=== PATIENT | male | born 1975 | race Caucasian/White ===

== ENCOUNTER 2017-09-27 23:47 | Emergency (ER) | payer BC ==
[2017-09-27 23:59] VITALS: BP 134/85; BMI 34.9
[2017-09-28] MEDS ORDERED: NS 1000 ML 1,000 ML IV ONE (00:44)
[2017-09-28] MEDS ORDERED: TORADOL 30 MG VIAL IVP ONE (00:44)
--- NOTE | 2017-09-28 00:47 | DR.GENAD ---
HPI - PCP Primary Care Physician: chivo - Complaint/Symptoms Chief Complaint Doctors Comments: Patient presents with generalized boy aches for one day. Chief Complaint:: flu symptoms - Source History Provided: Patient - Mode of Arrival Mode of Arrival: Ambulatory - Timing Onset of Chief Complaint: 09/27/17 PMH - PMH Past Medical History: Yes Past Medical History: Hypertension Past Surgical History: No - Family History History of Family Medical Conditions: Yes Family Medical History: Hypertension - Social History Does patient currently use any type of tobacco product: Yes Have you used tobacco products in the last 12 months: Yes Type of Tobacco Use: Cigarettes Does any household member use tobacco: No Alcohol Use: None Do you use any recreational Drugs:: No Lives With: Family Lives Where: Home - infectious screening In the last 2 months have you had wt loss of >10#?: NO Have you had fever, night sweats or hemotysis?: No Have you traveled outside the country in the last 6 months?: No Isolation: Standard ROS - Review of Systems Eyes: No Symptoms Reported ENTM: No Symptoms Reported Respiratoy: No Symptoms Reported Cardiovascular: No Symptoms Reported Gastrointestinal/Abdominal: No Symptoms Reported Genitourinary: No Symptoms Reported Neurological: No Symptoms Reported Musculoskeletal: No Symptoms Reported Integumentary: No Symptoms Reported Hematologic/Lymphatic: No Symptoms Reported Endocrine: No Symptoms Reported Psychiatric: No Symptoms Reported All Other Systems: Reviewed and Negative PE - Vital Signs Vitals: Temperature 100.3 F Pulse Rate 83 Respiratory Rate 22 Blood Pressure 134/85 O2 Sat by Pulse Oximetry 95 - General General Appearance: Alert, In No Apparent Distress - Head Head Exam: Normal Inspection, Atraumatic - Eyes Eye exam: Normal Appearance, PERRL, EOMI - ENT ENT Exam: Normal Exam External Ear Exam: Normal External Inspection TM/Canal Exam: Bilateral Normal Nose Exam: Normal Nose Exam Mouth Exam: Normal Inspection Throat Exam: Normal Inspection - Neck Neck Exam: Normal Inspection - Chest Chest Inspection: Normal Inspection - Respiratory Respiratory Exam: Normal Lung Sounds Bilat Respiratory Exam: Bilateral Clear to Auscultation - Cardiovascular Cardiovascular Exam: Regular Rate - Abdominal Exam Abdominal Exam: Normal Inspection Abdominal Tenderness: RUQ - Extremities Extremities Exam: Normal Inspection, Full ROM - Back Back Exam: Normal Inspection, Full ROM - Neurologic Neurological Exam: Alert, Oriented X3, CN II-XII Intact - Psychiatric Psychiatric Exam: Normal Affect - Skin Skin Exam: Warm, Dry, Intact ROR - Labs Reviewed Laboratory Results Reviewed?: Yes (influenza A) Laboratory: Influenza Type A (PCR) Positive (NEGATIVE) A 09/28/17 00:12 Influenza Type B (PCR) Negative (NEGATIVE) 09/28/17 00:12 S. pyogenes (TEM-PCR) Not detected (NOT DETECT) 09/28/17 00:12 - Diagnosis Discharge Problem: Influenza A - Discharge Plan Condition: Stable Prescriptions: Ibuprofen [MOTRIN TAB 800 MG *] 800 mg PO Q8H PRN #30 tab PRN Reason: Pain/Inflammation Ibuprofen [MOTRIN TAB 800 MG *] 800 mg PO TID #30 tab Oseltamivir Phosphate [Tamiflu] 75 mg PO BID #10 cap Promethazine W/Codeine [PHENERGAN W/CODEINE 6.25mg/10mg (5mL) *] 7.5 ml PO Q6H PRN #120 ml PRN Reason: Cough - Follow ups/Referrals Follow ups/Referrals: Baljit Salmeron [Primary Care Provider] - 3 days - Instructions
[2017-09-28] MEDS ORDERED: TORADOL 30 MG VIAL ONE (00:48)
[2017-09-28] MEDS ORDERED: NS 1000 ML 1,000 ML ONE (00:48)
== END 2017-09-28 01:39 | disposition home or self-care (01) ==
LOC: ER 23:47
DX: J10.1 Influenza due to other identified influenza virus with other respiratory manifestations (principal)
CPT/HCPCS: 87502; 87651; 96365; 96374; 99283; A4222; J1885